=== PATIENT | male | born 1970 | race African-American/Black ===

== ENCOUNTER 2023-03-29 07:53 | Emergency (ER) | payer BC ==
[2023-03-29 08:31] LABS: BASOPHILS ABSOLUTE AUTO 0.05 K/uL (0.02-0.10); BASOPHILS PERCENT AUTO 0.4 % (0.0-0.5); EOSINOPHILS ABSOLUTE AUTO 0.29 K/uL (0.04-0.40); EOSINOPHILS PERCENT AUTO 2.5 % (1.0-5.0); HEMATOCRIT 45.2 % (40.0-54.0); LYMPHOCYTES ABSOLUTE AUTO 2.93 K/uL (1.50-4.00); LYMPHOCYTES PERCENT AUTO 25.3 % (20.0-40.0); MEAN CORPUSCULAR HEMOGLOBIN 28.8 pg (27.0-32.0); MEAN CORPUSCULAR HGB CONC 33.2 g/dL (31.0-35.0); MEAN CORPUSCULAR VOLUME 87 fL (76-96); MEAN PLATELET VOLUME 9.6 fL (6.0-10.0); MONOCYTES ABSOLUTE AUTO 0.74 K/uL (0.20-0.80); MONOCYTES PERCENT AUTO 6.4 % (3.0-10.0); NEUTROPHILS ABSOLUTE AUTO 7.57 K/uL (2.00-7.50); NEUTROPHILS PERCENT AUTO 65.4 % (45.0-70.0); PLATELET COUNT,PLT 291 K/uL (150-400); RED CELL DISTRIBUTION WIDTH 13.3 % (11.0-16.0); WHITE BLOOD CELL COUNT,WBC 11.6 K/uL (4.0-11.0)
[2023-03-29 08:46] LABS: A/G RATIO 0.8 (0.8-2.0); ANION GAP 9.8 mmol/L (5.0-15.0); BILIRUBIN TOTAL 0.5 mg/dL (0.0-1.0); BUN/CREATININE RATIO 8.9 (6-25); CALCIUM 8.5 mg/dL (8.5-10.1); CARBON DIOXIDE,CO2 29.1 mmol/L (21.0-32.0); CREATININE 1.01 mg/dL (0.70-1.30); EST CRCL DRUG DOSING (CG) 92.16 mL/min; POTASSIUM,K 3.9 mmol/L (3.5-5.1); PROTEIN TOTAL,TP 6.8 g/dL (6.4-8.2)
[2023-03-29 09:00] LABS: INR 1.1 (1.0-3.5)
[2023-03-29] MEDS ORDERED: Metoprolol Tartrate 50 MG Tab ONE (09:00)
[2023-03-29 09:06] LABS: MAGNESIUM 1.7 mg/dL (1.8-2.4); TROPONIN I HIGH SENSITIVITY 20.4 pg/ml (<=60.4)
== END 2023-03-29 09:40 | disposition home or self-care (01) ==
LOC: LB.ED 07:53
DX: I10 Essential (primary) hypertension (principal)
CPT/HCPCS: 36415; 71045; 80053; 83735; 84484; 85025; 85610; 85730; 93005; 93010; 99283; A9270-GY

== ENCOUNTER 2024-03-13 11:16 | Observation (INO) | payer BC ==
[2024-03-13] MEDS: Ondansetron 4 MG/2 ML SDV IVPUSH ONE (11:41)
[2024-03-13] MEDS: Pantoprazole 40 MG Vial IVPUSH ONE (11:43)
[2024-03-13 12:00] LABS: BASOPHILS ABSOLUTE AUTO 0.02 K/uL (0.02-0.10); BASOPHILS PERCENT AUTO 0.2 % (0.0-0.5); EOSINOPHILS ABSOLUTE AUTO 0.11 K/uL (0.04-0.40); HEMATOCRIT 42.9 % (40.0-54.0); HEMOGLOBIN 14.4 g/dL (13.0-18.0); LYMPHOCYTES ABSOLUTE AUTO 2.54 K/uL (1.50-4.00); MEAN CORPUSCULAR HEMOGLOBIN 29.3 pg (27.0-32.0); MEAN CORPUSCULAR HGB CONC 33.6 g/dL (31.0-35.0); MEAN CORPUSCULAR VOLUME 87 fL (76-96); MEAN PLATELET VOLUME 10.1 fL (6.0-10.0); MONOCYTES ABSOLUTE AUTO 0.87 K/uL (0.20-0.80); MONOCYTES PERCENT AUTO 8.2 % (3.0-10.0); NEUTROPHILS ABSOLUTE AUTO 7.05 K/uL (2.00-7.50); NEUTROPHILS PERCENT AUTO 66.6 % (45.0-70.0); PLATELET COUNT,PLT 288 K/uL (150-400); RED BLOOD CELL COUNT 4.91 M/uL (4.50-6.50); RED CELL DISTRIBUTION WIDTH 13.1 % (11.0-16.0); WHITE BLOOD CELL COUNT,WBC 10.6 K/uL (4.0-11.0)
[2024-03-13] MEDS: Sodium Chloride 0.9% 1,000 ML IV ONE (12:03)
[2024-03-13] MEDS: Ondansetron 4 MG/2 ML SDV IVPUSH SCH (12:30)
[2024-03-13 12:48] LABS: BLOOD UREA NITROGEN,BUN 12 mg/dL (8-26); BUN/CREATININE RATIO 10.7 (6-25); C-REACTIVE PROTEIN 5.6 mg/L (<5.0); CALCIUM 8.8 mg/dL (8.5-10.1); CARBON DIOXIDE,CO2 28.5 mmol/L (21.0-32.0); CHLORIDE,CL 102 mmol/L (98-107); CREATININE 1.12 mg/dL (0.70-1.30); ESTIMATED GFR 79 mL/min (>60); GLUCOSE RANDOM 203 mg/dL (74-100); POTASSIUM,K 4.5 mmol/L (3.5-5.1); SODIUM,NA 135 mmol/L (136-145)
[2024-03-13] MEDS: Sodium Chloride 0.9% 1,000 ML IV SCH (13:04)
[2024-03-14] MEDS: glipiZIDE 5 MG Tab PO SCH (07:34)
[2024-03-14] MEDS: FLUoxetine 10 MG Cap PO SCH (07:34)
[2024-03-14] MEDS: atorvaSTATin 10 MG Tab PO SCH (07:34)
[2024-03-14] MEDS: metFORMIN 500 MG Tab PO SCH (07:35)
[2024-03-14] MEDS: Aspirin 81 MG Tab.EC PO SCH (07:36)
[2024-03-14] MEDS: Lisinopril 20 MG Tab PO SCH (07:37)
[2024-03-14] MEDS: amLODIPine 5 MG Tab PO SCH (07:38)
[2024-03-14] MEDS: Pantoprazole 40 MG in Sodium Chloride 0.9% 100 ML IV SCH (07:41)
[2024-03-14] MEDS: Ondansetron 4 MG Tab.DIS PO PRN (16:07)
[2024-03-14] MEDS: Magnesium Citrate Solution 296 ML Bottle PO ONE (16:21)
[2024-03-14] MEDS: Metoprolol Succinate 100 MG Tab.ER PO SCH (20:07)
== END 2024-03-15 13:30 | disposition home or self-care (01) ==
LOC: LB.ED 11:16 → LB.MS 12:21 → UNDOADMOB 12:30 → LB.MS 12:30
PROVIDERS: ADMIT Family Medicine; ATTEND Family Medicine
DX: E11.649 Type 2 diabetes mellitus with hypoglycemia without coma (principal); T50.905A Adverse effect of unspecified drugs, medicaments and biological substances, initial encounter; I10 Essential (primary) hypertension; E78.00 Pure hypercholesterolemia, unspecified; J45.909 Unspecified asthma, uncomplicated; F32.A Depression, unspecified; F41.9 Anxiety disorder, unspecified; Z79.84 Long term (current) use of oral hypoglycemic drugs; Z79.4 Long term (current) use of insulin; Z79.899 Other long term (current) drug therapy
CPT/HCPCS: 36415; 74019; 80048; 82947; 83605; 84484; 85025; 86140; 96361; 96374; 96375; 96376; 99222; 99232; 99238; 99285-25; A9270-GY; G0378; J2405; J2470; J7030; Q0162

== ENCOUNTER 2024-05-21 03:54 | Emergency (ER) | payer BC ==
[2024-05-21 04:55] LABS: BASOPHILS ABSOLUTE AUTO 0.04 K/uL (0.02-0.10); BASOPHILS PERCENT AUTO 0.4 % (0.0-0.5); EOSINOPHILS ABSOLUTE AUTO 0.37 K/uL (0.04-0.40); EOSINOPHILS PERCENT AUTO 3.7 % (1.0-5.0); HEMATOCRIT 46.3 % (40.0-54.0); HEMOGLOBIN 15.1 g/dL (13.0-18.0); LYMPHOCYTES ABSOLUTE AUTO 3.31 K/uL (1.50-4.00); LYMPHOCYTES PERCENT AUTO 33.5 % (20.0-40.0); MEAN CORPUSCULAR HEMOGLOBIN 29.2 pg (27.0-32.0); MEAN CORPUSCULAR HGB CONC 32.6 g/dL (31.0-35.0); MEAN CORPUSCULAR VOLUME 89 fL (76-96); MEAN PLATELET VOLUME 9.8 fL (6.0-10.0); MONOCYTES ABSOLUTE AUTO 0.85 K/uL (0.20-0.80); MONOCYTES PERCENT AUTO 8.6 % (3.0-10.0); NEUTROPHILS ABSOLUTE AUTO 5.31 K/uL (2.00-7.50); NEUTROPHILS PERCENT AUTO 53.8 % (45.0-70.0); PLATELET COUNT,PLT 294 K/uL (150-400); RED BLOOD CELL COUNT 5.18 M/uL (4.50-6.50); RED CELL DISTRIBUTION WIDTH 13.5 % (11.0-16.0); WHITE BLOOD CELL COUNT,WBC 9.9 K/uL (4.0-11.0)
[2024-05-21 04:58] LABS: INR 1.1 (1.0-3.5); PTT,PARTIAL THROMBOPLSTIN TIME 24.6 SECONDS (24.4-33.2)
[2024-05-21 04:59] LABS: PROTHROMBIN TIME 11.7 sec (9.0-11.5)
== END 2024-05-21 05:15 | disposition home or self-care (01) ==
LOC: LB.ED 03:54
DX: R04.0 Epistaxis (principal); I10 Essential (primary) hypertension; E11.9 Type 2 diabetes mellitus without complications; E66.9 Obesity, unspecified; Z79.4 Long term (current) use of insulin; Z79.82 Long term (current) use of aspirin; Z79.899 Other long term (current) drug therapy; Z79.84 Long term (current) use of oral hypoglycemic drugs; Z68.32 Body mass index [BMI] 32.0-32.9, adult
CPT/HCPCS: 36415; 82947; 85025; 85610; 85730; 99283